=== PATIENT | female | born 1995 ===

== ENCOUNTER 2020-04-25 13:47 | Emergency (ER) | payer OTHER ==
[~2020-04-25] VITALS: Ht 154.9 cm; Wt 59.1 kg
[2020-04-25 14:04] VITALS: TEMP 99.2
[2020-04-25] MEDS ORDERED: ATARAX50 MG PO (14:30)
[2020-04-25 14:58] LABS: BASO # 0.1 (0.0-0.2); BASO % 0.6 % (0.0-2.0); EOS # 0.1 (0.0-0.7); EOS % 0.7 % (0-4.0); GRAN # 5.9 (1.4-6.5); GRAN % 65.4 % (42.2-75.2); HEMATOCRIT 41.2 % (37.0-47.0); HEMOGLOBIN 13.9 g/dl (12.5-16.0); LYMPH # 2.3 (1.2-3.4); LYMPH % 25.9 % (20.0-51.0); MEAN CELL VOLUME 90 fl (80.0-100.0); MEAN CORPUSCULAR HEMOGLOBIN 30 pg (27.0-31.0); MEAN CORPUSCULAR HGB CONC 34 g/dl (33.0-37.0); MEAN PLATELET VOLUME 9.8 fl (7.4-10.4); MONO # 0.7 (0.1-0.6); MONO % 7.3 % (1.7-9.3); PLATELET COUNT 267 K/mm3 (130-400); RED BLOOD COUNT 4.58 M/mm3 (4.10-5.30)
[2020-04-25 15:06] LABS: ALANINE AMINOTRANSFERASE 35 U/L (4-34); ALBUMIN 4.1 gm/dL (3.5-5.0); ALKALINE PHOSPHATASE 42 U/L (50-136); ANION GAP 7 mmol/L (7-16); AST,SGOT 24 U/L (15-37); BILIRUBIN,TOTAL 0.5 mg/dL (0.0-1.0); BLOOD UREA NITROGEN 8 mg/dL (7-17); CALCIUM 9.1 mg/dL (8.4-10.2); CARBON DIOXIDE 26 mmol/L (22-30); CHLORIDE 106 mmol/L (98-107); CREATININE, serum 0.68 (0.52-1.25); GLUCOSE 124 mg/dL (74-106); SODIUM 139 mmol/L (137-145); TOTAL PROTEIN 7.3 gm/dL (6.4-8.2)
[2020-04-25 15:07] LABS: ACETAMINOPHEN < 10 ug/mL (10-30); ALCOHOL(ethanol),MEDICAL < 10 mg/dL; SALICYLATE < 1.0 mg/dL
[2020-04-25 15:13] LABS: TRICYCLIC ANTIDEPRESS URINE NEGATIVE
[2020-04-25 19:22] VITALS: BP 114/70; PULSE 88
== END 2020-04-25 19:22 | disposition home or self-care (01) ==
LOC: COL.ER 13:47
PROVIDERS: Emergency Medicine
DX: T50.902A Poisoning by unspecified drugs, medicaments and biological substances, intentional self-harm, initial encounter (principal); F10.129 Alcohol abuse with intoxication, unspecified; F17.210 Nicotine dependence, cigarettes, uncomplicated; F43.10 Post-traumatic stress disorder, unspecified; F32.9 Major depressive disorder, single episode, unspecified; Z88.1 Allergy status to other antibiotic agents; Z88.6 Allergy status to analgesic agent

== ENCOUNTER 2020-07-18 02:58 | Emergency (ER) | payer OTHER ==
[~2020-07-18] VITALS: Ht 154.9 cm; Wt 70.5 kg
[~2020-07-18 02:58] MED LIST: ATARAX50 MG PO
[2020-07-18 03:01] VITALS: TEMP 97.7
[2020-07-18 03:28] LABS: COLLECTION METHOD CLEAN CATCH
[2020-07-18 03:32] LABS: BASO # 0.1 (0.0-0.2); BASO % 0.4 % (0.0-2.0); EOS # 0.1 (0.0-0.7); EOS % 0.9 % (0-4.0); GRAN # 8.2 (1.4-6.5); GRAN % 73.7 % (42.2-75.2); HEMATOCRIT 40.3 % (37.0-47.0); HEMOGLOBIN 13.7 g/dl (12.5-16.0); LYMPH % 17.7 % (20.0-51.0); MEAN CELL VOLUME 88 fl (80.0-100.0); MEAN CORPUSCULAR HEMOGLOBIN 30 pg (27.0-31.0); MEAN CORPUSCULAR HGB CONC 34 g/dl (33.0-37.0); MEAN PLATELET VOLUME 10.1 fl (7.4-10.4); MONO # 0.8 (0.1-0.6); MONO % 6.9 % (1.7-9.3); PLATELET COUNT 241 K/mm3 (130-400); RED BLOOD COUNT 4.56 M/mm3 (4.10-5.30); REDCELL DISTRIBUTION WIDTH-CV 12.9 % (11.5-14.5)
[2020-07-18 03:38] LABS: MUCOUS Present /lpf; PH 7 (5-8); SQUAMOUS EPITHELIAL 0-2 /hpf; URINE APPEARANCE Hazy; URINE BACTERIA None Seen /hpf; URINE BILIRUBIN Negative (NEGATIVE); URINE BLOOD Negative (NEGATIVE); URINE COLOR Yellow; URINE GLUCOSE Negative (NEGATIVE); URINE KETONE Negative (NEGATIVE); URINE LEUKOCYTE ESTERASE Negative (NEGATIVE); URINE NITRATE Negative (NEGATIVE); URINE PROTEIN(semi-quant) 2+ (NEGATIVE); URINE RBC 0-2 /hpf; URINE UROBILINOGEN Negative (NEGATIVE)
[2020-07-18 03:44] LABS: ALBUMIN 4.3 gm/dL (3.5-5.0); BILIRUBIN,TOTAL 0.1 mg/dL (0.0-1.0); CALCIUM 9.2 mg/dL (8.4-10.2); CREATININE, serum 0.53 (0.52-1.25); POTASSIUM 3.7 mmol/L (3.4-5.0)
[2020-07-18 05:08] VITALS: BP 126/76; PULSE 105
== END 2020-07-18 05:10 | disposition home or self-care (01) ==
LOC: COL.ER 02:58
PROVIDERS: Emergency Medicine
DX: O20.0 Threatened abortion (principal); Z88.1 Allergy status to other antibiotic agents; Z88.6 Allergy status to analgesic agent; Z3A.12 12 weeks gestation of pregnancy

== ENCOUNTER 2020-12-08 01:12 | Outpatient (CLI) | payer OTHER ==
[2020-12-08] VITALS (7 sets, daily range): BP systolic 106–131; BP diastolic 57–85; PULSE 87–105; TEMP 98.4
--- NOTE | 2020-12-08 01:15 | NUR ---
0115- Pt brought upstairs in a wheelchair, very uncomfortable and in tears. Came in due to constant dull lower back pain, vaginal pressure, and feeling contractions. Shown to her room and a clean gown is provided to put on. No records available as she hasn't been seen here with this . Pt is a G3L0 and 30 and 6/7. Denies LOF and VB. Is feeling contractions, not firm to palpation but uncomfortable for pt. Positive movement per pt. Hx hyperemesis gravidarum treated with fluids on a few occassions, tachycardia throughout , and a hx of kidney stones. SAB x2. Resolved placenta previa.
[2020-12-08] MEDS ORDERED: PRENATAL TABLET PO (01:43)
[2020-12-08] MEDS ORDERED: PHENERGAN 25 TA25 MG PO (01:44)
[2020-12-08] MEDS ORDERED: MAGNESIUM200 MG PO (01:45)
[2020-12-08] MEDS ORDERED: NATURE'S BLEND100 M1 PO (01:46)
--- NOTE | 2020-12-08 02:03 | NUR ---
called and updated on pts status. See physican notification. Pt updated on plan of care. 0239: IV started and LR bolus infusing without difficulty. Tylenol given per orders. 0412: LR bolus completed. SVE unchanged per Albin PENNINGTON. 0440: at nurses station and reviews FHR strip. okay with FHR strip and discharge orders received. 0447: PT off monitors to change 0501: Discharge instruction given to pt and spouse. They verbalize their understanding. Questions answered. Pt ambulatory off unit.
[2020-12-08 02:58] LABS: COLLECTION METHOD CLEAN CATCH
[2020-12-08 03:06] LABS: MUCOUS Present /lpf; PH 7 (5-8); SQUAMOUS EPITHELIAL 0-2 /hpf; URINE APPEARANCE Hazy; URINE BACTERIA None Seen /hpf; URINE BILIRUBIN Negative (NEGATIVE); URINE BLOOD Negative (NEGATIVE); URINE COLOR Yellow; URINE GLUCOSE Negative (NEGATIVE); URINE KETONE Negative (NEGATIVE); URINE LEUKOCYTE ESTERASE Negative (NEGATIVE); URINE NITRATE Negative (NEGATIVE); URINE PROTEIN(semi-quant) Negative (NEGATIVE); URINE RBC 0-2 /hpf; URINE UROBILINOGEN Negative (NEGATIVE); URINE WBC 0-2 /hpf
== END 2020-12-08 05:01 | disposition home or self-care (01) ==
LOC: LDRO 01:12 → LDR 01:15 → LDRO 05:01 → LDR 05:01
PROVIDERS: Obstetrics & Gynecology
DX: O62.9 Abnormality of forces of labor, unspecified (principal); O99.891 Other specified diseases and conditions complicating pregnancy; M54.9 Dorsalgia, unspecified; N89.8 Other specified noninflammatory disorders of vagina; Z3A.00 Weeks of gestation of pregnancy not specified
CPT/HCPCS: OP; J7120

== ENCOUNTER 2020-12-29 06:57 | Outpatient (CLI) | payer OTHER ==
[~2020-12-29] VITALS: Ht 154.9 cm; Wt 79.5 kg
[~2020-12-29 06:57] MED LIST changes: +MAGNESIUM200 MG PO; +NATURE'S BLEND100 M1 PO; +PHENERGAN 25 TA25 MG PO; +PRENATAL TABLET PO
--- NOTE | 2020-12-29 07:05 | NUR ---
PT AMBULATORY TO UNIT C/O "NVD, UTERINE CRAMPING, AND NERVE PAIN TO LEFT GROIN AND LOWER BACK." PT STATES SHE CALLED HER OB AND HE TOLD HER TO COME TO LABOR AND DELIVERY OR THE ER FOR "REHYDRATION." PT PLACED ON EFM/TOCO. INITIALLY HAD A COUPLE MILD CONTRACTIONS Q3-4MIN APART, THEN CONTRACTIONS STOPPED. SVE UPON ARRIVAL CLOSED/THICK/HIGH. DENIES WATER BREAKING/LEAKING OF FLUID. REPORTS POSITIVE MOVEMENT. STATES SHE TAKES MULTIPLE NAUSEA MEDS AT HOME DUE TO HER DIAGNOSIS OF HYPEREMSIS WITH THIS . STATES SHE IS "ALWAYS NAUSEOUS AND VOMITING, BUT THE DIARRHEA IS NEW X2 WEEKS." DOCTORS WITH /[facility]. NO RECORDS AVAILABLE. PT DENIES OTHER COMPLICATIONS AND REPORTS SHE IS "DUE 02/10 AND 34 WEEKS TODAY."
[2020-12-29] MEDS ORDERED: TYLENOL 500MG500 MG PO (07:33)
[2020-12-29] MEDS ORDERED: REGLAN 10MG10 MG/TAB PO (07:33)
[2020-12-29] MEDS ORDERED: IMODIUM 2MG CAPS2 MG PO (07:34)
[2020-12-29 07:40] VITALS: BP 123/73; PULSE 104; TEMP 98.7
[2020-12-29 07:48] VITALS: BP 137/86; PULSE 96
== END 2020-12-29 08:00 | disposition home or self-care (01) ==
LOC: LDRO 06:57
DX: Z34.90 Encounter for supervision of normal pregnancy, unspecified, unspecified trimester (principal); Z3A.00 Weeks of gestation of pregnancy not specified

== ENCOUNTER 2021-05-01 01:04 | Emergency (ER) | payer OTHER ==
[~2021-05-01] VITALS: Ht 154.9 cm; Wt 73.6 kg
[~2021-05-01 01:04] MED LIST changes: +IMODIUM 2MG CAPS2 MG PO; +REGLAN 10MG10 MG/TAB PO; +TYLENOL 500MG500 MG PO
[2021-05-01 01:09] VITALS: TEMP 98.3
[2021-05-01 01:30] LABS: COLLECTION METHOD CLEAN CATCH
[2021-05-01 01:36] LABS: MUCOUS Present (NOT PRESENT); PH 5 (5-8); URINE APPEARANCE Clear (CLEAR/HAZY); URINE BACTERIA None Seen /hpf (NONE SEEN); URINE BILIRUBIN Negative (NEGATIVE); URINE BLOOD Negative (NEGATIVE); URINE COLOR Yellow (YELLOW); URINE GLUCOSE Negative (NEGATIVE); URINE KETONE 1+ (NEGATIVE); URINE LEUKOCYTE ESTERASE Negative (NEGATIVE); URINE NITRATE Negative (NEGATIVE); URINE PROTEIN(semi-quant) Negative (NEGATIVE); URINE RBC 0-2 /hpf (0-2); URINE UROBILINOGEN Negative (NEGATIVE)
[2021-05-01 01:41] LABS: BASO % 0.5 % (0.0-2.0); EOS # 0.2 K/mm3 (0.0-0.7); EOS % 2.9 % (0.0-4.0); GRAN # 3.4 K/mm3 (1.4-6.5); HEMATOCRIT 40.8 % (37.0-47.0); HEMOGLOBIN 13.7 g/dl (12.5-16.0); LYMPH # 3.7 K/mm3 (1.2-3.4); LYMPH % 45.7 % (20.0-51.0); MEAN CELL VOLUME 84 fl (80.0-100.0); MEAN CORPUSCULAR HEMOGLOBIN 28 pg (27-31); MEAN CORPUSCULAR HGB CONC 34 g/dl (33.0-37.0); MEAN PLATELET VOLUME 10.1 fl (7.4-10.4); MONO # 0.6 K/mm3 (0.1-0.6); MONO % 7.6 % (1.7-9.3); PLATELET COUNT 248 K/mm3 (130-400); RED BLOOD COUNT 4.84 M/mm3 (4.10-5.30); REDCELL DISTRIBUTION WIDTH-CV 14.3 % (11.5-14.5)
[2021-05-01 01:49] LABS: TRICYCLIC ANTIDEPRESS URINE NEGATIVE
[2021-05-01 02:00] LABS: ALANINE AMINOTRANSFERASE 22 U/L (0-55); ALBUMIN 4.3 gm/dL (3.5-5.0); ALKALINE PHOSPHATASE 65 U/L (40-150); ANION GAP 10 mmol/L (7-16); AST,SGOT 16 U/L (5-34); BILIRUBIN,TOTAL 0.3 mg/dL (0.2-1.2); BLOOD UREA NITROGEN 13 mg/dL (7-19); CALCIUM 9.1 mg/dL (8.4-10.2); CARBON DIOXIDE 20 mmol/L (22-29); CHLORIDE 110 mmol/L (98-107); CREATININE, serum 0.77 mg/dL (0.57-1.11); GLUCOSE 82 mg/dL (70-99); POTASSIUM 3.9 mmol/L (3.5-4.5); SODIUM 140 mmol/L (136-145); TOTAL PROTEIN 7.8 gm/dL (6.2-8.1)
[2021-05-01 02:05] LABS: ACETAMINOPHEN < 1.0 ug/mL (10-30); ALCOHOL(ethanol),MEDICAL < 10 mg/dL (0-10); SALICYLATE < 5.0 mg/dL (15.0-30.0)
[2021-05-01 02:19] LABS: TSH w REFLEX 1.364 uIU/mL (0.350-4.940)
[2021-05-01 04:33] VITALS: BP 128/87; PULSE 89
== END 2021-05-01 04:33 | disposition home or self-care (01) ==
LOC: COL.ER 01:04
PROVIDERS: Nurse Practitioner Primary Care
DX: O90.89 Other complications of the puerperium, not elsewhere classified (principal); O99.345 Other mental disorders complicating the puerperium; F53.0 Postpartum depression; R45.851 Suicidal ideations